=== PATIENT | male | born 1940 | race Caucasian/White ===

== ENCOUNTER → 2016-07-24 | Outpatient (CLI) | payer OTHER ==
[~2016-07-24] MED LIST: LISI-729 PO; RIVA1TAB4 PO; TMB100 PO
[2016-07-24 18:06] LABS: BLOOD UREA NITROGEN 26 mg/dl (7-18); BUN/CREATININE RATIO 21.9 (10-20)
--- NOTE | 2016-07-31 06:43 | CODING QUERY MEDICAL NECESSITY ---
SUPPORTING DIAGNOSIS NEEDED Dr. Lopez, A supporting diagnosis is required for the test/procedure performed on this patient in order for us to be reimbursed by the patient's insurance. Please provide a supporting diagnosis for the following test/procedure listed below next to the test name along with your signature. *If there is no additional diagnosis for this patient that would support the following test/procedure please document that below next to the test/procedure. Test(s)/Procedure(s) that require a supporting diagnosis: * 59517 PSA DIAGNOSIS: DATE OF SERVICE: 07/24/16 Provider Signature: Date: Thank you Johny Goldman [facility] Information Management Once completed, please kindly fax back to [phone] For questions please call [phone]
== END | disposition home or self-care (01) ==
LOC: C.LABPBG 11:43
PROVIDERS: ATTEND Urology
DX: N20.0 Calculus of kidney (principal); C61 Malignant neoplasm of prostate

== ENCOUNTER → 2017-05-02 | Outpatient (CLI) | payer OTHER ==
[2017-05-02 12:35] LABS: BASO % 0.7 %; BASO ABS # 0.05 K/uL (0-0.2); EOS % 9.8 %; EOS ABS # 0.66 K/uL (0-0.5); HEMATOCRIT 48.8 % (42-52); HEMOGLOBIN 16.3 g/dL (14.0-18.0); IG# 0.02 K/uL (0.00-0.02); LYMPH % 22.8 %; LYMPH ABS # 1.54 K/uL (1.2-3.4); MEAN CELL VOLUME 89.7 fL (80-100); MEAN CORPUSCULAR HGB CONC 33.4 g/dl (32-36); MEAN PLATELET VOLUME 11.7 fL (7.4-10.4); MONO % 9.8 %; MONO ABS # 0.66 K/uL (0.11-0.59); NEUT % 56.6 %; NEUT ABS # 3.82 K/uL (1.4-6.5); PLATELET COUNT 189 K/uL (130-400); RED CELL DISTRIBUTION WIDTH CV 13.4 % (11.5-14.5); RED CELL DISTRIBUTION WIDTH SD 43.7 fL (36.4-46.3); WHITE BLOOD COUNT 6.75 K/uL (4.8-10.8)
[2017-05-02 13:03] LABS: ALBUMIN 3.5 gm/dl (3.4-5.0); ALT/SGPT 32 U/L (12-78); BLOOD UREA NITROGEN 27 mg/dl (7-18); CALCIUM 8.9 mg/dl (8.5-10.1); CARBON DIOXIDE 29 mmol/L (21-32); CHOLESTEROL 184 mg/dl (0-200); CREATININE 1.22 mg/dl (0.60-1.40); GLUCOSE 96 mg/dl (70-99); POTASSIUM 4.7 mmol/L (3.5-5.1); SODIUM 140 mmol/L (136-145)
[2017-05-02 13:15] LABS: ALKALINE PHOSPHATASE 51 U/L (45-117); AST/SGOT 24 U/L (15-37); LDL CHOLESTEROL CALCULATED 110 mg/dl; TOTAL PROTEIN 6.9 gm/dl (6.4-8.2)
== END | disposition home or self-care (01) ==
LOC: C.LABPBG 07:56
PROVIDERS: ATTEND Internal Medicine
DX: C61 Malignant neoplasm of prostate (principal); I48.91 Unspecified atrial fibrillation; R00.1 Bradycardia, unspecified; N20.0 Calculus of kidney; I10 Essential (primary) hypertension; I42.9 Cardiomyopathy, unspecified

== ENCOUNTER → 2017-06-06 | Outpatient (CLI) | payer OTHER ==
--- NOTE | 2017-06-06 15:48 | DIAGNOSTIC IMAGING REPORT ---
KUB CLINICAL HISTORY: N20.0 NEPHROLITHIASIS COMPARISON STUDY: 02/02/2016 FINDINGS: There is no pathologic bowel dilatation. The renal shadows are partially obscured overlying bowel gas and fecal material. No renal calculi are visualized. Pelvic basin calcifications likely represent phleboliths. IMPRESSION: No renal calculi identified on conventional radiographic imaging Electronically signed by: Maxwell Mcmullen M.D. 06/06/2017 3:47 PM Dictated Date/Time: 06/06/2017 3:46 PM
== END | disposition home or self-care (01) ==
LOC: C.RADBC 15:31
PROVIDERS: ATTEND Urology
DX: N20.0 Calculus of kidney (principal)

== ENCOUNTER → 2017-06-13 | Outpatient (CLI) | payer OTHER | END | disposition home or self-care (01) | LOC: C.LABPBG 08:29 | PROVIDERS: ATTEND Urology | DX: R39.12 Poor urinary stream (principal) ==

== ENCOUNTER 2018-04-23 11:01 | Observation (INO) ==
[~2018-04-23 11:01] MED LIST changes: +LACTATED RINGER'S 1,000 ML IV SCH; -LISI-729 PO; -RIVA1TAB4 PO; -TMB100 PO
--- NOTE | 2018-04-23 12:55 | History & Physical Bridge Note ---
Date of Service April 23, 2018 History & Physical Bridge Note I have examined the patient, reviewed the History & Physical and in the interval since the performance of the History & Physical I have noted the following changes of clinical significance: no changes noted. I reviewed the indications, procedure, risks and alternatives of pacemaker implantation with him and his family who are present in the room. They understand and he agrees to proceed. Consent obtained. I also reviewed conscious sedation with him and he agrees. Consent obtained.
--- NOTE | 2018-04-23 13:00 | Pre Anesthesia Assessment ---
Date of Service April 23, 2018 Pre Sedation Assessment Vital Signs Temp Pulse Resp BP Pulse Ox 04/23/18 12:02 36.6 C 56 L 18 145/91 H 97 Cardiovascular Additional Comments: Irregular slow rhythm Respiratory normal respiratory effort, lungs clear to auscultation Pre-Sedation Airway Assessment Smoking Status: Never smoker Hx Sleep Apnea: No Hx Difficult Intubation: No Short, Thick Neck: No Thyromental Distance: > or= 3.5 Finger Breadths Mallampati Class: II ASA III NPO Status Date of Last Intake of Fluids: 04/22/18 Date of Last Intake of Solid Food: 04/22/18 Procedure Planning Contraindications for Sedation: none Current Medications Reviewed: Yes Notes The planned sedation has been discussed with the patient. Informed Consent was obtained. I have identified the patient, determined the appropriateness of sedation and have assessed the patient immediately prior to the procedure. All medicine(s) and interventions are by my order.
[2018-04-23] MEDS ORDERED: BACITRACIN INJ 50,000 UNIT VIAL ONE (13:17)
[2018-04-23] MEDS ORDERED: LIDOCAINE HCL 1% 20 ML VIAL ONE (13:17)
[2018-04-23] MEDS ORDERED: BACITRACIN OINT 0.9 GM PKT ONE (13:17)
[2018-04-23] MEDS ORDERED: MIDAZOLAM HCL 5 MG/ML 1 ML VIAL ONE (13:31)
[2018-04-23] MEDS ORDERED: fentaNYL citrate 100 MCG/2 ML VIAL ONE (13:32)
[2018-04-23] MEDS: CEFAZOLIN 1000MG 1,000 MG/7.5 ML SYR IV SCH ×2 (14:11→15:31)
--- NOTE | 2018-04-23 14:31 | Operative Report ---
Post Operative Report Pre & Post Diagnosis Operation Date: 04/23/18 13:00 Preoperative diagnosis: Atrial fibrillation with slow ventricular response Postoperative diagnosis: Same Procedure Operation Date: 04/23/18 13:00 Actual Procedures p ICD Insertion Single or Dual(Left) - Paul Rod MD Surgeon Paul Rod MD Chief Radiologic Technologist None Estimated Blood Loss 10 Findings Consistent with Post-Op Diagnosis Good lead position, excellent pacing and sensing characteristics Specimens None Complications none Disposition Accompanied Patient To Recovery: No Disposition: PCU Description of Procedure After obtaining informed consent for the procedure, the patient was brought to the laboratory and prepped and draped in the standard sterile manner. The left prepectoral region was anesthetized with 1% lidocaine local anesthetic and left axillary venipuncture was performed by percutaneous technique and a guidewire placed through the left subclavian vein into the superior vena cava. The area was further infiltrated with 1% lidocaine local anesthetic and a 5 cm incision was made parallel to the left clavicle and 2 cm below it and carried down to the anterior pectoralis fascia. A pacemaker pocket was formed by blunt dissection anterior to the pectoralis fascia and a bacitracin-soaked sponge (50,000 units in 50 cc normal saline solution) was placed in the pocket. An 8 Nepali [employer] lead introducer was placed over the guidewire into the left subclavian vein, the dilator and guidewire were removed and a bipolar active fixation steroid tipped ventricular lead was advanced through the introducer into the superior vena cava. A guidewire was placed through the introducer and the introducer was stripped from the lead and guidewire. Using a curved stylette the ventricular lead was advanced through the right ventricular outflow tract into the pulmonary artery and then using a straight stylette was positioned in the right ventricular apex. The screw was extended fixing the lead in position. Pacing and sensing thresholds were evaluated in bipolar configuration and are recorded on the implant data sheet. Once the lead was in position it was attached to the anterior pectoralis fascia using 2 sutures of 2-0 silk around the lead collar. The bacitracin-soaked sponge was removed from the pocket, hemostasis was obtained, the pacemaker was attached to the lead and placed in the pocket with the lead coiled beneath it. The incision was closed with a running double subcutaneous closure of 3-0 Vicryl absorbable suture, followed by running subcuticular skin closure of 4-0 Vicryl absorbable suture. Bacitracin ointment was placed on the incision and a pressure dressing applied. I attest to the content of the Intraoperative Record and any orders documented therein. Any exceptions are noted below.
[2018-04-23] MEDS ORDERED: ACETAMINOPHEN 325 MG TAB PO PRN (14:36)
[2018-04-23] MEDS ORDERED: KETOROLAC TROMETHAMINE 10 MG TABLET PO PRN (14:36)
--- NOTE | 2018-04-23 16:36 | Post Anesthesia Assessment ---
Date of Service April 23, 2018 Post Sedation Assessment Vital Signs Temp Pulse Resp BP BP Pulse Ox 04/23/18 15:52 50 L 156/97 H 97 04/23/18 15:22 54 L 18 143/82 H 94 04/23/18 15:07 150/82 H 95 04/23/18 14:52 49 L 18 148/88 H 95 04/23/18 14:37 36.7 C 51 L 18 148/88 H 95 04/23/18 12:02 36.6 C 56 L 18 145/91 H 97 Recovery Score Activity: Moves 4 extremities Respiration: Deep Breath/Cough Consciousness: Fully Awake Oxygen Saturation: > 92% On Room Air Discharge Sedation Level of Care: Fast Track Phase II Post Sedation Plan On clinical assessment, the patient appears to have tolerated the sedation without complications. Patient is recovering as anticipated. Patient will continue to be monitored by nursing and may be discharged when sedation discharge criteria are met per below protocol. Upon Completions of procedure and additional 15 minutes continue every 5 minute vital signs and the P.A.R. score; then discharge to a Phase I or Fast Track to Phase II per the following guidelines: * Discharge Patient to appropriate Phase II area if PAR is 8 or greater or return to pre- procedure baseline. The post - procedure orders will be as directed. * If PAR score is less than 8 or not return to pre-procedure baseline then patient will follow Phase I monitoring till PAR is reached for Phase II. The Phase I may be done in procedure room or may call to secure a Phase I area. * If naloxone or flumazenil are used for reversal, hold in Phase I for continued monitoring from when last reversal dose was given for a minimum of 60 minutes or longer pending the nurse and/or physician discretion of patient condition before discharge to Phase II. Please call the Sedation Physician to re-evaluate and complete post-note for discharge to Phase II area. Do NOT discharge from procedure sedation or Phase 1 until post- sedation evaluation note is complete by procedure /sedation MD Sedation Discharge Instructions to be given to the patient at discharge to home.
--- NOTE | 2018-04-24 06:41 | XRay Report ---
XR chest 2V routine CLINICAL HISTORY: EXACT TIME ORDERED Evaluate for pneumothorax and l lead placement COMPARISON STUDY: 8 01/29/2016 FINDINGS: Interval placement of a permanent unipolar cardiac pacemaker. Lead is in good position. No evidence of pneumothorax. Lungs are clear. IMPRESSION: No acute process post permanent unipolar cardiac pacemaker placement. The above report was generated using voice recognition software. It may contain grammatical, syntax or spelling errors. Electronically signed by: Pravin Williamson M.D. 04/24/2018 6:40 AM
--- NOTE | 2018-04-24 10:28 | Discharge Summary ---
Date of Service April 24, 2018 Admission HPI Per Admitting Provider This is a very pleasant 78-year-old gentleman who has a recent diagnosis of atrial fibrillation and cardiomyopathy. His background history is notable for him being quite athletic for most of his life, he still runs regularly and has had no difficulty with exercise and has a good exercise tolerance. He notes that his heart rate has been very slow for a long time (going back into his 20s at least) and he has evidently no symptoms related to atrial fibrillation. His atrial fibrillation was identified in September 2015 when he presented with kidney stones, he didn't see physicians regularly before that and doesn't think he ever had an electrocardiogram therefore we can't be sure of the time of onset. In September 2015 he was also identified as having a mild cardiomyopathy. He did have an event monitor placed while he was taking a beta marvin, on the event monitor he had periods of rapid heart rate (140 bpm) as well as periods of slow heart rate with pauses of between 4 and 5 seconds although a lot of artifact occurred with the longer pause so is not clear whether these pauses were more than 4 seconds. These were in the collar baster jumpbasting hours, presumably during sleep. He had absolute no symptoms related to pauses. His beta marvin was discontinued and another event monitor showed no pauses longer than 3 seconds and no dangerously slow heart rates. He has been anticoagulated with Xarelto, this was started 11/08/2015. He underwent cardioversion on 02/02/2016 which was successful in converting him to sinus rhythm, however in follow-up 02/07/2016 he was noted to be in atrial fibrillation. He was completely unaware of the change in rhythm, either after the cardioversion or when he went back into atrial fibrillation. I don't know how long he was in sinus rhythm. With lack of symptoms and recurrence of atrial fibrillation we felt that the most prudent option was to maintain anticoagulation and leave him in atrial fibrillation. A Holter monitor done 01/27/2016 without AV fabien blocking medications but on flecainide shows atrial fibrillation throughout with a heart rate range from 37 bpm to 159 bpm with an average of 71 bpm. The maximum RR interval was 2.93 seconds. The Holter monitor was repeated on March 19, 2017 on no AV fabien blocking medications and off of flecainide. His heart rate ranged from 33 bpm to 119 bpm with an average of 74. His longest pause was 2.86 seconds. He had 2 episodes of lightheadedness however, one was in April of 2017 when he was walking down his zoroastrian steps and he felt a little lightheaded and leaned against the wall, the other episode was August 2017 when he was walking down sidewalk and felt momentary lightheadedness. I suspected these might be slow heart rates but he preferred not to investigate further or consider a pacemaker. Admission Exam (Per Admitting) Constitutional Constitutional: Alert, cooperative and in no distress. HEENT: Unremarkable Neck: No jugular venous distention, carotid pulses are irregular but otherwise normal and equal bilaterally without bruits. Pulmonary: Clear to auscultation bilaterally. Cardiac: Irregular slow rhythm with no murmur, gallop or rub. Abdomen: Soft, nontender with normal bowel sounds. Extremities: No edema. Distal pulses intact. Neurologic: No focal findings. Gait is steady. Skin: No rash, ecchymoses or petechiae. Discharge Data Procedures Performed Operation Date: 04/23/18 13:00 Actual Procedures p Pacer with Ventricular Lead(Left) - Paul Rod MD Hospital Course (1) Atrial fibrillation with slow ventricular response: Patient had evidence of gradually dropping heart rate suggesting progressive AV fabien disease. He underwent single chamber pacemaker implantation without complication. Discharge Instructions ACTIVITY RECOMMENDATIONS: * Do not raise affected arm over head for 2 weeks. SPECIAL CARE INSTRUCTIONS: * If bleeding occurs, apply direct pressure to area for 5 minutes. * Call your doctor if you have severe pain, fever, drainage or bleeding at site. * Keep dressing on and dry for 48 hours then remove. * Keep any scheduled doctor's appointment. * Implant Card - hand held device with website information given. SKIN IRRITATION: * You may experience some redness and/or swelling in the area where radiation was administered. If any skin irritation occurs, please contact your family physician. FOLLOW UP VISIT: Appointment at Dr. Rod's office 04/26/18 10:30 am
--- NOTE | 2018-04-24 16:51 | Cardiology Progress Note ---
Date of Service April 24, 2018 Assessment & Plan (1) Pacemaker: Postop day #1: He is doing well post pacemaker implantation, the pacer is working well and the site looks good. Stable for discharge today. Subjective He feels well today, only minimal incisional discomfort. Physical Exam Vital Signs (Past 24 Hours): Last Vital Signs Temp 36.3 C L 04/24/18 11:17 Pulse 52 L 04/24/18 11:17 Resp 16 04/24/18 11:17 BP 137/88 04/24/18 11:17 Pulse Ox 96 04/24/18 11:17 Physical Exam: Pacemaker insertion site looks clean and dry, no bleeding. Expected ecchymosis. Results & Data Diagnostic Findings ECG: Postop pacemaker implantation showed predominantly a paced rhythm with some AV conduction Telemetry: Normal pacemaker function with underlying atrial fibrillation Chest x-ray: Good lead position, no pneumothorax Pacemaker evaluation: Excellent pacing and sensing characteristics
== END 2018-04-24 12:28 | disposition home or self-care (01) ==
LOC: ASU 11:01 → 2S 11:01